=== PATIENT | female | born 1930 | race Caucasian/White ===

== ENCOUNTER 2019-12-05 14:14 | Emergency (ER) | payer MEDICARE, BC ==
[2019-12-05] MEDS ORDERED: Morphine 2 MG/ML Syringe IVPUSH ONE (14:36)
[2019-12-05] MEDS ORDERED: Sodium Chloride 0.9% 1,000 ML IV SCH (14:45)
--- NOTE | 2019-12-05 15:37 | CT ---
CT abdomen and pelvis Technique: Multiple axial sections were obtained from above the dome of the diaphragm inferiorly through the pubic symphysis. Intravenous and oral contrast not utilized. Findings: Left kidney shows dilated collecting system as well as proximal ureter being dilated. Etiology not seen for this ureteral dilatation. No abnormal calcifications are seen within the kidneys or within the ureters. Visualized lung bases show nothing acute. Liver shows no focal abnormality. Several low-density lesions are noted within the spleen which are felt to be incidental. Small hiatal hernia seen. Adrenal glands show no nodule. Pancreas shows no discrete abnormality. Aorta shows diffuse atherosclerotic change which continues into the iliac vessels. No retroperitoneal adenopathy or mesenteric abnormalities are seen. No pelvic mass or adenopathy is seen. No free fluid or inflammatory change is seen. Appendix is seen and is normal in size. Scattered degenerative change is noted throughout the spine. No acute osseous finding is seen. Degenerative change is also noted within both hips. Impression: 1. Several low-density lesions within the spleen which are likely incidental. 2. Dilated left kidney collecting system and proximal left ureter. Etiology for this dilatation is not seen on this exam. 3. Other findings believed to be incidental as described above. Diagnostic code #2 Study was dictated in [place] Standard Time
[2019-12-05 15:41] LABS: BLOOD UREA NITROGEN,BUN 30 mg/dL (7.0-18.0); CARBON DIOXIDE,CO2 28.7 mmol/L (21.0-32.0); CHLORIDE,CL 104 mmol/L (98-107); GLUCOSE RANDOM 93 mg/dL (74-106); LIPASE 84 U/L (73-393); POTASSIUM,K 4.6 mmol/L (3.5-5.1); SODIUM,NA 140 mmol/L (136-145)
--- NOTE | 2019-12-05 16:49 | EDM.PDOC ---
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 Quinonez as she has had contact with the clinic however she Kiene is out I believe she came to the emergency room to see Dr. Quinonez or having him called in here however he is out of town and not on-call and will not return to town until December 10. I did continue work-up with CT no contrast due to IV contrast allergy she does have a lighted collecting system on the left kidney essentially unchanged from previous she has imaging performed through [facility] in [place] where the stents were placed and subsequently removed. The patient after learning Cristiano was unavailable states that pain is resolved and would like to go home I did offer her transfer to [facility] for urology care however she refuses transfer and desires return to her home she is pleasant she is not mal content After prolonged stay in the ER with further and completion of evaluation and she elects to return home and wait for her appointment with Dr. Quinonez extended the invitation to return at any time if symptoms persist or worsen or if new concerning symptoms develop At current she denies pain she denies fever nausea vomiting chills sweats no chest pain shortness of breath headache dizziness palpitation no urinary symptoms she did provide urine which is consistent with UTI Review of systems: As per history of present illness and below otherwise all systems reviewed and negative. Past medical history: As per history of present illness and as reviewed below otherwise noncontributory. Surgical history: As per history of present illness and as reviewed below otherwise noncontributory. Social history: No reported history of drug or alcohol abuse. Family history: As per history of present illness and as reviewed below otherwise noncontributory. Physical exam: HEENT: Atraumatic, normocephalic, pupils reactive, negative for conjunctival pallor or scleral icterus, mucous membranes moist, throat clear, neck supple, nontender, trachea midline. Lungs: Clear to auscultation, breath sounds equal bilaterally, chest nontender. Heart: S1S2, regular, negative for clicks, rubs, or JVD. Abdomen: Soft, nondistended, nontender. Negative for masses or hepatosplenomegaly. Negative for costovertebral tenderness. Pelvis: Stable nontender. Genitourinary: Deferred. Rectal: Deferred. Extremities: Atraumatic, negative for cords or calf pain. Neurovascular unremarkable. Neuro: Awake, alert, oriented. Cranial nerves II through XII unremarkable. Cerebellum unremarkable. Motor and sensory unremarkable throughout. Exam nonfocal. Diagnostics: [cbc CMP UA CT abdomen pelvis no contrast due to IVContrast allergy] Therapeutics: [Saline Macrobid Tramadol ] return if symptoms persist or worsen Follow-up with Dr. Quinonez as scheduled Impression: [Elated renal collecting system History ureteral stenting in the past Chronic history of baseline] Definitive disposition and diagnosis as appropriate pending reevaluation and review of above. LLQ Pain Score (Numeric/FACES): 6 - Related Data Allergies Allergy/AdvReac Type Severity Reaction Status Date / Time iodine Allergy Unknown Other Verified 12/05/19 14:36 Penicillins Allergy Unknown Other Verified 12/05/19 14:39 shellfish derived Allergy Unknown Other Verified 12/05/19 14:39 Home Meds: Home Meds Citalopram [Citalopram HBr] 10 mg PO BEDTIME 12/05/19 [History] Citalopram [Citalopram HBr] 20 mg PO ACBREAKFAST 12/05/19 [History] Donepezil HCl [Aricept] 10 mg PO DAILY 12/05/19 [History] Simvastatin [Zocor] 10 mg PO BEDTIME 12/05/19 [History] Trimethoprim 100 mg PO DAILY 12/05/19 [History] Past Medical History HEENT History: Reports: Cataract Cardiovascular History: Reports: Other (See Below) Other Cardiovascular History: AAA Respiratory History: Reports: None Gastrointestinal History: Reports: None Genitourinary History: Reports: None AMBULANCE PARAMEDIC History: Reports: None Musculoskeletal History: Reports: Osteoarthritis Neurological History: Reports: None Psychiatric History: Reports: Dementia, Depression Endocrine/Metabolic History: Reports: None Hematologic History: Reports: None Immunologic History: Reports: None Oncologic (Cancer) History: Reports: Other (See Below) Other Oncologic History: Malignant Neoplasm Dermatologic History: Reports: None - Infectious Disease History Infectious Disease History: Reports: Chicken Pox, Measles, Mumps - Past Surgical History Head Surgeries/Procedures: Reports: None HEENT Surgical History: Reports: Cataract Surgery Cardiovascular Surgical History: Reports: None Respiratory Surgical History: Reports: None GI Surgical History: Reports: None Female Surgical History: Reports: None Endocrine Surgical History: Reports: None Neurological Surgical History: Reports: None Musculoskeletal Surgical History: Reports: None Oncologic Surgical History: Reports: None Dermatological Surgical History: Reports: None Social & Family History - Family History Family Medical History: Noncontributory - Tobacco Use Smoking Status *Q: Never Smoker Second Hand Smoke Exposure: No - Caffeine Use Caffeine Use: Reports: None - Recreational Drug Use Recreational Drug Use: No ED ROS GENERAL - Review of Systems Review Of Systems: See Below ED EXAM, GENERAL - Physical Exam Exam: See Below Course - Vital Signs Last Recorded V/S: Last Vital Signs Temp 98.7 F 12/05/19 14:30 Pulse 73 12/05/19 15:38 Resp 18 12/05/19 15:38 BP 124/49 L 12/05/19 15:38 Pulse Ox 97 12/05/19 15:38 - Orders/Labs/Meds Orders: Active Orders 24 hr Category Date Time Status CULTURE URINE [RM] Stat Lab 12/05/19 16:12 Received Sodium Chloride 0.9% [Normal Saline] 1,000 ml Med 12/05/19 14:45 Active IV STAT Medication Orders Sodium Chloride (Normal Saline) 1,000 mls @ 125 mls/hr IV STAT VIVIANE Last Admin: 12/05/19 15:35 Dose: 125 mls/hr Labs: Laboratory Tests 12/05/19 12/05/19 12/05/19 Range/Units 14:55 14:55 16:12 WBC 5.93 (4.0-11.0) K/uL RBC 4.01 L (4.30-5.90) M/uL Hgb 11.9 L (12.0-16.0) g/dL Hct 36.6 (36.0-46.0) % MCV 91.3 (80.0-98.0) fL MCH 29.7 (27.0-32.0) pg MCHC 32.5 (31.0-37.0) g/dL RDW Std Deviation 48.4 (28.0-62.0) fl RDW Coeff of [place] 15 (11.0-15.0) % Plt Count 222 (150-400) K/uL MPV 9.20 (7.40-12.00) fL Neut % (Auto) 70.1 (48.0-80.0) % Lymph % (Auto) 18.2 (16.0-40.0) % [place] % (Auto) 8.8 (0.0-15.0) % Eos % (Auto) 2.4 (0.0-7.0) % Baso % (Auto) 0.5 (0.0-1.5) % Neut # (Auto) 4.2 (1.4-5.7) K/uL Lymph # (Auto) 1.1 (0.6-2.4) K/uL [place] # (Auto) 0.5 (0.0-0.8) K/uL Eos # (Auto) 0.1 (0.0-0.7) K/uL Baso # (Auto) 0.0 (0.0-0.1) K/uL Nucleated RBC % 0.0 /100WBC Nucleated RBCs # 0 K/uL Sodium 140 (136-145) mmol/L Potassium 4.6 (3.5-5.1) mmol/L Chloride 104 (98-107) mmol/L Carbon Dioxide 28.7 (21.0-32.0) mmol/L BUN 30 H (7.0-18.0) mg/dL Creatinine 1.2 H (0.6-1.0) mg/dL Est Cr Clr Drug Dosing 25.49 mL/min Estimated GFR (MDRD) 42.3 ml/min Glucose 93 (74-106) mg/dL Calcium 9.1 (8.5-10.1) mg/dL Total Bilirubin 0.3 (0.2-1.0) mg/dL AST 19 (15-37) IU/L ALT 20 (14-63) IU/L Alkaline Phosphatase 73 (46-116) U/L Troponin I < 0.050 (0.000-0.056) ng/mL Total Protein 7.2 (6.4-8.2) g/dL Albumin 3.5 (3.4-5.0) g/dL Globulin 3.7 (2.6-4.0) g/dL Albumin/Globulin Ratio 0.9 (0.9-1.6) Lipase 84 (73-393) U/L Urine Color YELLOW Urine Appearance CLOUDY Urine pH 5.5 (5.0-8.0) Ur Specific [place] >= 1.030 (1.001-1.035) Urine Protein 100 H (NEGATIVE) mg/dL Urine Glucose (UA) NEGATIVE (NEGATIVE) mg/dL Urine Ketones NEGATIVE (NEGATIVE) mg/dL Urine Occult Blood LARGE H (NEGATIVE) Urine Nitrite NEGATIVE (NEGATIVE) Urine Bilirubin NEGATIVE (NEGATIVE) Urine Urobilinogen 0.2 (<2.0) EU/dL Ur Leukocyte Esterase SMALL H (NEGATIVE) Urine RBC 50-60 (0-2/HPF) Urine WBC 10-15 (0-5/HPF) Ur Epithelial Cells FEW (NONE-FEW) Urine Bacteria FEW (NEGATIVE) Meds: Medications Generic Name Dose Route Start Last Admin Trade Name Freq PRN Reason Stop Dose Admin Sodium Chloride 1,000 mls @ 125 mls/hr 12/05/19 14:45 12/05/19 15:35 Normal Saline IV 125 mls/hr STAT VIVIANE Administration Discontinued Medications Generic Name Dose Route Start Last Admin Trade Name Freq PRN Reason Stop Dose Admin Morphine Sulfate 2 mg 12/05/19 14:36 12/05/19 15:36 Morphine IVPUSH 12/05/19 14:37 2 mg ONETIME ONE Administration Departure - Departure Time of Disposition: 16:55 Disposition: Home, Self-Care 01 Condition: Fair Clinical Impression: Dilated renal collection system - Discharge Information Referrals: Fritz Miller MD [Primary Care Provider] - Forms: ED Department Discharge Additional Instructions: Medication as prescribed Return if symptoms persist or worsen Follow-up with Dr. Quinonez as scheduled [facility] [address] [place] [id number] The following information is given to patients seen in the emergency department who are being discharged to home. This information is to outline your options for follow-up care. We provide all patients seen in our emergency department with a follow-up referral. The need for follow-up, as well as the timing and circumstances, are variable depending upon the specifics of your emergency department visit. If you don't have a primary care physician on staff, we will provide you with a referral. We always advise you to contact your personal physician following an emergency department visit to inform them of the circumstance of the visit and for follow-up with them and/or the need for any referrals to a consulting specialist. The emergency department will also refer you to a specialist when appropriate. This referral assures that you have the opportunity for follow-up care with a specialist. All of these measure are taken in an effort to provide you with optimal care, which includes your follow-up. Under all circumstances we always encourage you to contact your private physician who remains a resource for coordinating your care. When calling for follow-up care, please make the office aware that this follow-up is from your recent emergency room visit. If for any reason you are refused follow-up, please contact the [facility] emergency department at and asked to speak to the emergency department charge nurse. Sepsis Event Note - Evaluation Sepsis Screening Result: No Definite Risk - Focused Exam Vital Signs: Vital Signs Temp Pulse Resp BP Pulse Ox 12/05/19 15:38 73 18 124/49 L 97 12/05/19 14:30 98.7 F 58 L 18 146/59 H 96 Date Exam was Performed: 12/05/19 Time Exam was Performed: 16:50 - My Orders Last 24 Hours: My Active Orders 12/05/19 14:45 Sodium Chloride 0.9% [Normal Saline] 1,000 ml IV STAT 12/05/19 16:12 CULTURE URINE [RM] Stat - Assessment/Plan Last 24 Hours: My Active Orders 12/05/19 14:45 Sodium Chloride 0.9% [Normal Saline] 1,000 ml IV STAT 12/05/19 16:12 CULTURE URINE [RM] Stat
== END 2019-12-05 17:25 | disposition home or self-care (01) ==
LOC: MW.ED 14:14
DX: N28.89 Other specified disorders of kidney and ureter (principal); F32.9 Major depressive disorder, single episode, unspecified; M19.90 Unspecified osteoarthritis, unspecified site; Z88.0 Allergy status to penicillin; Z91.013 Allergy to seafood; Z88.8 Allergy status to other drugs, medicaments and biological substances; Z79.899 Other long term (current) drug therapy
CPT/HCPCS: 74176; 80053; 81001; 83690; 84484; 85025; 87086; 96361; 96374; 99284; J2270; J7030